=== PATIENT | female | born 2000 | race Caucasian/White ===

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

== ENCOUNTER 2024-05-01 18:47 | Inpatient (IN) ==
--- NOTE | 2024-05-01 19:25 | Emergency Department Note ---
Impression & Plan Mood disorder, Autism spectrum ED Provider Note ED Provider Note NAME: ERICA MOORE AGE:23 SEX: Female : [age] ARRIVES VIA: Private vehicle INFORMANT: Patient ED PROVIDER(s): Judith Coffman DO CHIEF COMPLAINT: Mental health evaluation HPI: This is a 23-year-old female presents emergency department for mental health evaluation. Patient does have documented history of schizoaffective disorder, PTSD, and autism spectrum. She denies any concern for recent injury or illness. She states she has chronic problems with her right elbow and does present wearing a sling. Patient admits to suicidal ideation as well as prior suicide attempt. She denies HI. PAST MEDICAL HISTORY:See Below PAST SURGICAL HISTORY:See Below FAMILY HISTORY:See Below SOCIAL HISTORY:See Below HOME MEDICATIONS:See Below ALLERGIES:See Below VITALS:See Below PHYSICAL EXAMINATION: GENERAL: alert, well appearing, well nourished, no distress, non-toxic EYE EXAM: normal conjunctiva, PERRL and EOM's grossly intact OROPHARYNX: no exudate, no erythema, lips, buccal mucosa, and tongue normal and mucous membranes are moist NECK: supple, no nuchal rigidity, no adenopathy, non-tender LUNGS: Clear to auscultation. Normal chest wall mechanics, no w/r/r HEART: no murmurs, S1 normal and S2 normal ABDOMEN: abdomen soft, non-tender, normo-active bowel sounds, no masses, no rebound or guarding. BACK: Back is symmetrical on inspection and there is no deformity, no midline tenderness, no CVA tenderness. SKIN: no rashes, petechiae, orbruising UPPER EXTREMITIES: upper extremities are grossly normal. FROM, nml pulses b/l. LOWER EXTREMITIES: No pitting edema. FROM, nml pulses b/l. NEURO EXAM: Normal sensorium, cranial nerves II-XII grossly intact, normal speech, no facial droop,nogross weakness of arms, no gross weakness of legs. Gross sensation intact. No ataxia. Vital Signs: reviewed and remarkable Differential Diagnosis: mood disorder, suicidal ideation, anxiety, depression, substance abuse, toxidrome, infection, hypoglycemia, electrolyte abnormalities, ICH as well as others were considered. MEDICAL DECISION MAKING: This is a 73-year-old female presents emerged part for mental health evaluation. Patient with history of autism spectrum disorder, mood disorder, schizoaffective disorder and PTSD. Patient states she has suicidal ideation and has a history of prior attempts. She denies homicidal ideation. She states she has not been taking any of her medications. Patient seen and evaluated by case management referred to [facility] for additional inpatient mental health treatment. 201 signed by me. Consultation(s): 2219: Patient seen and evaluated by case management and referred to [facility] 201 signed by me. ER Treatment Provided: See below Diagnostics Interpreted By Me: -Laboratory studies: As stated above and show below. Triage Nursing Note Reviewed Prior/Outside Records Reviewed Past Med/Surg History Problem List (Updated 05/02/24 @ 02:01 by Judith Coffman DO) Schizoaffective disorder (Acute) PTSD (post-traumatic stress disorder) Nephrolithiasis Abdominal migraine (Acute) Mood disorder (Acute) Autism spectrum (Acute) Right arm weakness Migraine headache Maxillary hypoplasia Medical History Abdominal pain Abnormal uterine bleeding (AUB) Essential hypertriglyceridemia Heat intolerance Screening for heart disease Anxiety Per Patient doesn't have this DX. Information was pulled from her PCP note dated 03/17/2020 Autistic disorder Surgical History History of surgery on arm History of mandibular surgery S/P tonsillectomy and adenoidectomy History of elbow surgery Family History Mother Clotting disorder Other Cancer Colorectal cancer Social History Smoking Status: Never smoker Preferred Language: Tunisian Communication Ability: Effective Visual Impairment: No Limitations Hearing Ability: Normal Record Center Coordinator Required: No Beliefs That Will Affect Care: Nondenominational Nondenominational Beliefs: Voodoo marital status: Single Current Living Situation: Family current occupational status: student Feels Safe at Home: Hesitant to Answer Diet Comment: liquid diet during the past year weight has: decreased > 10 lbs Gender Identity: Nonbinary Allergies Allergies Allergy/AdvReac Type Severity Reaction Status Date / Time chocolate flavor Allergy Severe SHORT OF Verified 12/26/23 23:23 BREATH galcanezumab-gnlm Allergy Intermediate rash Verified 12/26/23 23:23 [From Emgality Pen] ibuprofen [From Advil] Allergy Intermediate hives and Verified 12/26/23 23:23 rash mushroom Allergy Intermediate Hives Verified 12/26/23 23:23 naproxen Allergy Intermediate Hives Verified 12/26/23 23:23 Penicillins Allergy Intermediate RASH Verified 12/26/23 23:23 Sulfa (Sulfonamide Allergy Intermediate hives Verified 12/26/23 23:23 Antibiotics) gabapentin Allergy Unknown Unknown Verified 12/26/23 23:23 rizatriptan Allergy Unknown Unknown Verified 12/26/23 23:23 topiramate AdvReac Severe Suicidal Verified 12/26/23 23:23 Ideations erythromycin base AdvReac Unknown MOM STATES Verified 12/26/23 23:23 THAT IT IS NOT EFFECTIVE Home Meds Home Medications Medication Instructions Recorded Confirmed cholecalciferol (vitamin D3) 125 5,000 unit PO QAM 01/26/23 05/01/24 mcg (5,000 unit) capsule (D3-5000) omega-3 fatty acids 1,000 mg 1,000 mg PO QAM 01/26/23 05/01/24 capsule (Super [place]-3) prazosin 2 mg capsule 6 mg PO HS 09/06/23 05/01/24 levonorgestrel-ethinyl estradiol 1 tab PO QAM 12/26/23 05/01/24 0.1 mg-20 mcg tablet (Sronyx) levothyroxine 25 mcg tablet 25 mcg PO DAILY 02/28/24 05/01/24 Previous Rx's Medication Instructions Recorded eptinezumab-jjmr 100 mg/mL 100 mg IV .COMPLEX 3 months #1 mL 11/14/23 intravenous solution (Vyepti) ondansetron 4 mg disintegrating 4 mg translingual BID PRN nausea 12/24/23 tablet and vomiting due to migraine #60 tabs Results & Data (ED) Vital Signs Vital Signs - 24 hr 05/01/24 18:47 05/01/24 20:45 Temperature 36.6 C Temperature Source Oral Pulse Rate 98 H Pulse Rate [Left Finger] 82 Pulse Rhythm [Left Finger] Regular Pulse Strength [Left Finger] Normal Respiratory Rate 18 20 Respiratory Effort / Characteristics Non-Labored Non-Labored Spontaneous Respiratory Depth Normal Normal Respiratory Pattern Regular Regular Blood Pressure 147/86 H Blood Pressure [Left Arm] 117/67 Blood Pressure Mean 106 Blood Pressure Mean [Left Arm] 83 Blood Pressure Position [Left Arm] Lying Pulse Oximetry 100 97 Oxygen Delivery Method Room Air Room Air Sepsis Recent Fever Within 48 Hours No Sepsis New/Unexplained Change in Mental Status N/A Sepsis Action Taken by Nursing No Action Required Laboratory Data 05/01/24 19:40 05/01/24 19:40 Lab Results 05/01/24 05/01/24 Range/Units 19:40 19:41 WBC 7.79 (4.8-10.8) K/ul RBC 4.70 (4.20-5.40) M/uL Hgb 13.9 (12.0-16.0) g/dl Hct 42.6 (37.0-47.0) % MCV 90.6 (80.0-100.0) fL MCH 29.6 (25.0-34.0) pg MCHC 32.6 (32.0-36.0) g/dL RDW Std Deviation 42.1 (36.4-46.3) fL RDW Coeff of Julio César 12.7 (11.5-14.5) % Plt Count 267 (130-400) K/uL MPV 10.9 (9.4-12.4) fL Immature Gran % (Auto) 0.3 % Neut % (Auto) 62.6 % Lymph % (Auto) 29.0 % [place] % (Auto) 7.2 % Eos % (Auto) 0.6 % Baso % (Auto) 0.3 % Neut # (Auto) 4.88 (1.40-6.50) K/uL Lymph # (Auto) 2.26 (1.20-3.40) K/uL [place] # (Auto) 0.56 (0.11-0.59) K/uL Eos # (Auto) 0.05 (0.00-0.50) K/uL Baso # (Auto) 0.02 (0.00-0.20) K/uL Immature Gran # (Auto) 0.02 (0.01-0.20) K/uL Sodium 139 (136-145) mmol/L Potassium 3.6 (3.5-5.1) mmol/L Chloride 106 (98-107) mmol/L Carbon Dioxide 22 (21-32) mmol/L Anion Gap 11 (3-11) BUN 10 (6-23) mg/dl Creatinine 0.63 (0.6-1.2) mg/dl Est Cr Clr Drug Dosing 182.1 ml/min eGFR 127.75 BUN/Creatinine Ratio 15.9 (10-20) Glucose 89 (70-99(Fasting)) mg/dl Calcium 9.2 (8.6-10.3) mg/dl Total Bilirubin 0.8 (0.2-1.0) mg/dl AST 31 (13-39) U/L ALT 39 (7-52) U/L Alkaline Phosphatase 49 (34-104) U/L Total Protein 7.8 (6.0-8.3) gm/dl Albumin 4.8 (3.4-5.0) gm/dl Globulin 3.0 (2.5-4.0) gm/dl Albumin/Globulin Ratio 1.6 (0.9-2) TSH 1.179 (0.300-4.500) uIu/ml HCG, Qual Negative (Negative) Urine Color Yellow Urine Appearance Clear (Clear) Urine pH 6.5 (4.5-7.5) Ur Specific [place] 1.015 (1.000-1.030) Urine Protein Negative (Negative) Urine Glucose (UA) Negative (Negative) Urine Ketones 2+ H (Negative) Urine Blood Negative (Negative) Urine Nitrite Negative (Negative) Urine Bilirubin Negative (Negative) Urine Urobilinogen Negative (Negative) Ur Leukocyte Esterase Negative (Negative) Salicylates < 3.0 L (3.0-30) mg/dl Urine Opiates Screen Neg (Neg) Ur Methadone, Qual Neg (Neg) Urine Fentanyl Screen Neg (Neg) Acetaminophen < 3 L (10-30) ug/ml Urine Barbiturates Neg (Neg) Ur Phencyclidine (PCP) Neg (Neg) U Amphetamin/Meth Scrn Neg (Neg) MDMA (Ecstasy) Screen Neg (Neg) U Benzodiazepines Scrn Neg (Neg) Ur Cocaine Metabolite Neg (Neg) U Marijuana (THC) Screen Neg (Neg) Ethyl Alcohol mg/dL < 10.0 (<10.0) mg/dl SARS-CoV-2, RNA, NAAT NEGATIVE (NEGATIVE) Discharge Plan Visit Data Chief Complaint: Mental Health Evaluation Stated Complaint: [facility] ED Provider: Judith Coffman Discharge Problem: Mood disorder, Autism spectrum Patient Disposition: Admitted As Inpatient Discharge Instructions Interventions: ED Discharge Assessment Last Done: 05/01/24 22:26
[2024-05-01 20:12] LABS: Basophils # (auto) 0.02 K/uL (0.00-0.20); Basophils % (auto) 0.3 %; Eosinophils # (auto) 0.05 K/uL (0.00-0.50); Eosinophils % (auto) 0.6 %; Hematocrit (blood only) 42.6 % (37.0-47.0); Hemoglobin 13.9 g/dl (12.0-16.0); Immature Granulocytes # (auto) 0.02 K/uL (0.01-0.20); Immature Granulocytes % (auto) 0.3 %; Lymphocytes # (auto) 2.26 K/uL (1.20-3.40); Mean Corpuscular Hemoglobin 29.6 pg (25.0-34.0); Mean Corpuscular Hgb Conc 32.6 g/dL (32.0-36.0); Mean Corpuscular Volume 90.6 fL (80.0-100.0); Mean Platelet Volume 10.9 fL (9.4-12.4); Monocytes # (auto) 0.56 K/uL (0.11-0.59); Monocytes % (auto) 7.2 %; Neutrophils # (auto) 4.88 K/uL (1.40-6.50); Neutrophils % (auto) 62.6 %; Platelet Count 267 K/uL (130-400); RDW Coefficient of Variation 12.7 % (11.5-14.5); RDW Standard Deviation 42.1 fL (36.4-46.3); White Blood Count 7.79 K/ul (4.8-10.8)
[2024-05-01 20:26] LABS: Appearance Urine Clear (Clear); Bilirubin Urine Negative (Negative); Blood Urine Negative (Negative); Color Urine Yellow; Glucose Urine UA Negative (Negative); Ketones Urine 2+ (Negative); Leukocyte Esterase Urine Negative (Negative); Nitrite Urine Negative (Negative); Protein Urine Negative (Negative); Specific Gravity Urine 1.015 (1.000-1.030); Urobilinogen Urine Negative (Negative); pH Urine 6.5 (4.5-7.5)
[2024-05-01 20:29] LABS: Albumin Globulin Ratio 1.6 (0.9-2); Albumin Level 4.8 gm/dl (3.4-5.0); BUN Creatinine Ratio 15.9 (10-20); Bilirubin,Total 0.8 mg/dl (0.2-1.0); Calcium 9.2 mg/dl (8.6-10.3); Creatinine Clr Calc Pharmacy 182.1 ml/min; Potassium 3.6 mmol/L (3.5-5.1); Total Protein 7.8 gm/dl (6.0-8.3)
[2024-05-01 20:31] LABS: Pregnancy Test, Serum Negative (Negative)
[2024-05-01 20:43] LABS: Thyroid Stimulating Hormone 1.179 uIu/ml (0.300-4.500)
[2024-05-01 20:52] LABS: Acetaminophen < 3 ug/ml (10-30); Salicylate < 3.0 mg/dl (3.0-30)
[2024-05-01 21:32] LABS: Amphetamines+Metham, Urine Neg (Neg); Barbiturates, Urine Neg (Neg); Benzodiazepine, Urine Neg (Neg); Cocaine, Urine Neg (Neg); Fentanyl, Urine Neg (Neg); MDMA (Ecstacy), Urine Neg (Neg); Marijuana, Urine Neg (Neg); Methadone, Urine Neg (Neg); Opiate, Urine Neg (Neg); Phencyclidine, Urine Neg (Neg)
[2024-05-01 22:26] VITALS: O2SAT 98
[2024-05-01 23:03] VITALS: RESP 16
[2024-05-01] MEDS ORDERED: hydrOXYzine HCl 25 MG TAB PO PRN ×2 (23:07)
[2024-05-01] MEDS ORDERED: ALUMINUM/MAGNESIUM SUSP 30 ML UDC PO PRN (23:07)
[2024-05-01] MEDS ORDERED: SODIUM CHLORIDE 0.65% NA SOLN 45 ML (OCEAN) PRN (23:07)
[2024-05-01] MEDS ORDERED: MAGNESIUM HYDROXIDE SUSP 30 ML UDC PO PRN (23:07)
[2024-05-01] MEDS ORDERED: MELATONIN 3 MG TAB PO PRN (23:16)
--- NOTE | 2024-05-02 08:58 | History & Physical ---
Date of Service May 02, 2024 Impression / Recommendations Impression ERICA MOORE is a 23-year-old nonbinary individual (they/them) who is currently living at [facility], has frequent emergency room visits for various somatic and psychiatric symptoms, a history of ASD, MDD, PTSD, borderline personality disorder, functional pain syndromes, functional blindness, IBS, abdominal migraines, sacroiliitis, joint hypermobility, and was admitted on 05/01/24 22:14 on a 201 voluntary commitment for SI with plan for seeking a lethal injection. Diagnostically consistent unclear, strong suspicion for factitious disorder as they seem to have many dependent traits and have been observed already to seek attention of others by making sounds related to reported pain in various joints but then once engaged in discussion or getting one-on-one time immediately starts moving same body parts without any signs of distress or impairment. Suspect they may also have a mild intellectual disability as part of their autism spectrum disorder and this further exacerbates suspected borderline personality disorder per history and with marked cluster B traits currently presenting. No current evidence for major depression given that while they report suicidal ideation they present with bright affect, future-orientation and laughing with peers. Suspect they may also be seeking social interaction through their stated mental health concerns. Additionally chart review confirms that they seem to have found a sense of community and friendships by interacting with others on chronic medical condition forums which seems to perpetuate the suspected factitious disorder. Given the level of odd statements and incongruent affect and suddenly moving a local homeless custodial and cutting off contact with outpatient correctional counselor/case manager there is concern for possible psychosis or hypomania playing a role. Hypomania seems unlikely but will observe sleep and behaviors while admitted to better rule this out definitively. Higher suspicion for possible psychosis contributing to odd focus on not eating/drinking, only wanting to certain medication formulations and distancing from their supports. Some of their magical thinking/odd presentation may be due to autism so will trial antipsychotic with plan to discontinue if no benefits are observed. Discussed medication treatment options in detail. Discussed risks, benefits and alternatives. Patient would like to start and consented to clonidine patch as off-label for PTSD, escitalopram liquid formulation for PTSD/unspecified depression, risperidone ODT for psychosis/mood stabilization and topical voltaren cream for physical pain in their joints. Reviewed side effects including but not limited to: low BP/syncope; GI, ALARCON, sexual side effects, and counseled on black box warning of potential for emergence of or increased SI and need to let staff know should this occur or should they feel unsafe. Also discussed importance of seeking emergency care following discharge if this side effect occurs in the future; movement (TD, NMS), cardiac (QTc prolongation), and metabolic (stroke, insulin resistance) and necessity for fasting lipid and glucose labwork and AIMS done with score of 0; potential for hives/allergic reaction given prior report of hives with Ibuprofen (but also reports taking this and tolerating po NSAIDs at other times). MNPR as identifies as non-binary, poor boundaries with peers Overall I spent a total of 75 minutes for this admission including review of chart records, review of labwork, direct evaluation of the patient, counseling the patient, ordering medication, risk assessment, discussion with the psychiatric liason RN and documentation in the electronic health record. 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 The patient will participate in group, recreational, and milieu therapies and will be offered additional individual and family sessions as clinically appropriate. -Medications: * Risperidone 0.5mg ODT qAM and 1mg HS ODT * Escitalopram 5mg daily soln * clonidine 0.1mg TD * Voltaren gel bid prn for joint pain -Labwork: * HbA1c * Fasting lipid panel * Vit D * Vit B12 Inventory Assets Strengths: seeks help, future focused on education Needs: diagnostic clarification, housing, insurance, medications Suicide Risk Level Suicide Risk Level: Moderate (q15 min suicide checks) (reports SI but plan and past attempts are more consistent with self-harm/unrealistic, feels safe in the hospital, affect and presentation is very inconsistent with depression and reports many future oriented goals and plans, feels able to ask for support ) Risk Factors Assessment Male: No : Yes Do You Have Access To A Gun?: No Health Problems: Yes Mental Health Diagnoses: Yes Substance Use Disorders: No Previous Attempt: No (self-harm in past) Family History of Suicide: No Previous Psychiatric Hospitalization: Yes Hopelessness: No Protective Factors Assessment Employed: No Supportive Family: Yes (but not in contact currently) Psychiatric History Identifying Data ERICA MOORE is a 23-year-old nonbinary individual (they/them) who is currently living at [facility], has frequent emergency room visits for various somatic and psychiatric symptoms, a history of ASD, MDD, PTSD, borderline personality disorder, functional pain syndromes, functional blindness, IBS, abdominal migraines, sacroiliitis, joint hypermobility, and was admitted on 05/01/24 22:14 on a 201 voluntary commitment for SI with plan for seeking a lethal injection. Chief Complaint "I have a lot of medical problems and some psychiatric problems, it's a little complicated, I'm ready to pass away now I'm not eating or drinking, ready for morphine". History of Present Illness Oswaldo presents with a complex mental state, expressing a desire to and to stop eating and drinking, while also discussing future educational and career aspirations. They describe wish to by suicide by getting morphine or lethal injection stating "I want to be on drugs to go to sleep and be at peace and then ". However then begins telling me about how they are moving to [facility] soon to start college at [employer] noting "I'm actually leaving eventually and I'm going to [place]. 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 Pointed out this discrepancy to which they reply being fed up with chronic pain. They report chronic physical pain since age 13, including abdominal migraines (though are on a new infusion medication they report is helping a lot), irritable bowel syndrome with diarrhea, encephalitis, joint issues, and tendonitis. They deny having tried any pain medications except Tylenol and Ibupfen in the past but are very resistant to any po medications for pain (or psychiatric symptoms) nor consideration for further outpatient options such as PT or chronic pain clinic noting "I don't trust that". Pointed out this seemed like help seeking help rejecting behavior to which they reply "help rejecting, yes I do that". They report a history of autism, depression, major compulsive disorder, anxiety, and PTSD, with a strained relationship with their mother being a contributing factor to their PTSD symptoms. They endorse depressive symptoms such as suicidal ideation, poor sleep, and constant fatigue, with a history of three suicide attempts, the most recent involving self-harm with a tuna can and prior to that described as "I pick my nails because I'm doing suicide, but that's all the time for me, I'm used to it."They deny current anxiety symptoms. They exhibits periods of elevated and varying voice intonation which they attribute to their autism. They are currently prescribed prazosin for PTSD, Prozac for depression, trazodone for sleep, and Synthroid for hypothyroidism but haven't been taking these because reportedly some medications were stolen at the custodial and as they report a willingness only for "IM or IV". They do express willingness to consider liquid, dissolvable, cream and patch formulations. Additionally, the patient reports homelessness since April 21 and is currently staying at [facility] an arrangement they are satisfied with. They are involved with outpatient providers at [facility] and a therapist, but sessions are currently on hold due to insurance complications. However they state "it's not a problem, I'm not worried about it". They also report being on the waitlist at an [place] custodial which is being coordinated by [facility] and reports not currently speaking with their outpatient correctional counselor/case manager. Difficult to fully assess psychiatric ROS-hx of schizoaffective disorder or schizophrenia per chart review but they state this diagnosis was revised at [facility]. Denies history of walter, reports poor sleep recently but with constant fatigue. Past Psychiatric History Current Psychiatric Diagnosis: Depression; anxiety, PTSD Outpatient Services: [facility] Therap[facility]-Carla Armstrong (had been weekly, "not now because of my insurance") [facility] ("but I'm not seeing them anymore because I'm moving to [place]") Previous Psych Admissions: many, Last hospitalization two months ago at [facility] for ASD, MDD, anxiety, PTSD Do You Have Access To A Gun?: No History of Previous Suicide Attempt: Yes Describe Attempts in the Past: 3x-tried to cut self with a tuna can >1 year, Past Medication Trials: trazodone, prazosin, fluoxetine Additional Notes: "I pick my nails due to suicide" Allergies Allergy/AdvReac Type Severity Reaction Status Date / Time chocolate flavor Allergy Severe SHORT OF Verified 12/26/23 23:23 BREATH [id number] Allergy Intermediate rash Verified 12/26/23 23:23 [From Emgality Pen] ibuprofen [From Advil] Allergy Intermediate hives and Verified 12/26/23 23:23 rash mushroom Allergy Intermediate Hives Verified 12/26/23 23:23 naproxen Allergy Intermediate Hives Verified 12/26/23 23:23 Penicillins Allergy Intermediate RASH Verified 12/26/23 23:23 Sulfa (Sulfonamide Allergy Intermediate hives Verified 12/26/23 23:23 Antibiotics) gabapentin Allergy Unknown Unknown Verified 12/26/23 23:23 rizatriptan Allergy Unknown Unknown Verified 12/26/23 23:23 topiramate AdvReac Severe Suicidal Verified 12/26/23 23:23 Ideations erythromycin base AdvReac Unknown MOM STATES Verified 12/26/23 23:23 THAT IT IS NOT EFFECTIVE Home Medications Medication Instructions Recorded Confirmed Type cholecalciferol (vitamin D3) 125 5,000 unit PO QAM 01/26/23 05/01/24 History mcg (5,000 unit) capsule (D3-5000) omega-3 fatty acids 1,000 mg 1,000 mg PO QAM 01/26/23 05/01/24 History capsule (Super [place]-3) prazosin 2 mg capsule 6 mg PO HS 09/06/23 05/01/24 History eptinezumab-jjmr 100 mg/mL 100 mg IV .COMPLEX 3 months #1 mL 11/14/23 05/01/24 Rx intravenous solution (Vyepti) ondansetron 4 mg disintegrating 4 mg translingual BID PRN nausea 12/24/23 05/01/24 Rx tablet and vomiting due to migraine #60 tabs levonorgestrel-ethinyl estradiol 1 tab PO QAM 12/26/23 05/01/24 History 0.1 mg-20 mcg tablet (Sronyx) levothyroxine 25 mcg tablet 25 mcg PO DAILY 02/28/24 05/01/24 History trazodone 100 mg tablet 100 mg PO HS 05/02/24 05/02/24 History Family History Family History of: Anxiety and Bipolar Family Mental Health History Comment: Dad-bipolar Mom-anxiety Alcohol History Hx of Alcohol Use Over the Past 12 Months: No AUDIT Total Score: 0 Smoking Use Smoking Status: Never smoker Substance History Hx of Prescription Med Misuse Over the Past 12 Months: No Hx of Over the Counter Med Misuse Over the Past 12 Months: No Hx of Inhalent Misuse Over the Past 12 Months: No Hx of Organic Substance Use Over the Past 12 Months: No Hx of Illegal Substances/Street Drug Use Over Past 12 Months: No Problems as a Result of Past Substance Use: None Identified Personal History Living Arrangements: [facility] Highest Grade Completed: High School Graduate Employment Status: Unemployed Beliefs That Will Affect Care: Restorationist Hx Traumatic Life Events: Yes Patient History Medical History Abdominal pain Abnormal uterine bleeding (AUB) Essential hypertriglyceridemia Heat intolerance Screening for heart disease Anxiety Per Patient doesn't have this DX. Information was pulled from her PCP note dated 03/17/2020 Autistic disorder Surgical History History of surgery on arm History of mandibular surgery S/P tonsillectomy and adenoidectomy History of elbow surgery Family History Mother Clotting disorder Other Cancer Colorectal cancer Social History Smoking Status: Never smoker Preferred Language: Khmer Communication Ability: Effective Visual Impairment: No Limitations Hearing Ability: Normal Medical Records Director Required: No Beliefs That Will Affect Care: Restorationist Restorationist Beliefs: Gnosticism marital status: Single Current Living Situation: Family current occupational status: student Feels Safe at Home: Hesitant to Answer Diet Comment: liquid diet during the past year weight has: decreased > 10 lbs Gender Identity: Nonbinary Review of Systems Review of Systems: All systems reviewed & are unremarkable except as noted in HPI & below Physical Exam Psychiatric: Orientation: alert and oriented x 3 Apperance: appropriately dressed (holding stuffed animal and ice pack to their stomach) Eye Contact: + fair eye contact Motor Behavior: no abnormal motor movements Speech: + abnormal rate/rhythm/volume of speech (high pitched tone, child-like) Affect: euthymic affect (smiling broadly with peers, chatting in the hallway); + mood not congruent with affect Mood: + depressed mood; no anxious mood Thought Process: + circumstantial thought process Thought Content: + preoccupation and + delusions Suicidal Thoughts: denies suicidal intent; + reports suicidal thoughts (but also very future-oriented) and + reports suicidal plan (seeking lethal injection) Homicidal Thoughts: denies homicidal thoughts Hallucinations: no auditory hallucinations and no visual hallucinations Cognition: recent memory grossly intact, remote memory grossly intact, attention grossly intact and language grossly intact Estimated Intelligence: + below average estimated intelligence Insight: + poor insight Judgment: + poor judgement Vital Signs (Past 24 Hours): Last Vital Signs Temp 36.7 C 05/02/24 06:38 Pulse 76 05/02/24 06:39 Resp 16 05/02/24 06:38 BP 114/81 05/02/24 06:39 Pulse Ox 98 05/01/24 22:44 O2 Del Method Room Air 05/01/24 22:44 Exam Statement: A physical exam was performed in the ED by Dr. Coffman for the purposes of medical clearance. I accept that physical as correct and adequate for the purposes of the inpatient physical exam. Results & Data ([facility]) Laboratory Results Laboratory Results - last 24 hr 05/01/24 05/01/24 19:40 19:41 WBC 7.79 RBC 4.70 Hgb 13.9 Hct 42.6 MCV 90.6 MCH 29.6 MCHC 32.6 RDW Std Deviation 42.1 RDW Coeff of Julio César 12.7 Plt Count 267 MPV 10.9 Immature Gran % (Auto) 0.3 Neut % (Auto) 62.6 Lymph % (Auto) 29.0 Schley % (Auto) 7.2 Eos % (Auto) 0.6 Baso % (Auto) 0.3 Neut # (Auto) 4.88 Lymph # (Auto) 2.26 Schley # (Auto) 0.56 Eos # (Auto) 0.05 Baso # (Auto) 0.02 Immature Gran # (Auto) 0.02 Sodium 139 Potassium 3.6 Chloride 106 Carbon Dioxide 22 Anion Gap 11 BUN 10 Creatinine 0.63 Est Cr Clr Drug Dosing 182.1 eGFR 127.75 BUN/Creatinine Ratio 15.9 Glucose 89 Calcium 9.2 Total Bilirubin 0.8 AST 31 ALT 39 Alkaline Phosphatase 49 Total Protein 7.8 Albumin 4.8 Globulin 3.0 Albumin/Globulin Ratio 1.6 TSH 1.179 HCG, Qual Negative Urine Color Yellow Urine Appearance Clear Urine pH 6.5 Ur Specific Roe 1.015 Urine Protein Negative Urine Glucose (UA) Negative Urine Ketones 2+ H Urine Blood Negative Urine Nitrite Negative Urine Bilirubin Negative Urine Urobilinogen Negative Ur Leukocyte Esterase Negative Salicylates < 3.0 L Urine Opiates Screen Neg Ur Methadone, Qual Neg Urine Fentanyl Screen Neg Acetaminophen < 3 L Urine Barbiturates Neg Ur Phencyclidine (PCP) Neg U Amphetamin/Meth Scrn Neg MDMA (Ecstasy) Screen Neg U Benzodiazepines Scrn Neg Ur Cocaine Metabolite Neg U Marijuana (THC) Screen Neg Ethyl Alcohol mg/dL < 10.0 SARS-CoV-2, RNA, NAAT NEGATIVE Current Inpatient Medications Current Inpatient Medications: Current Inpatient Medications Acetaminophen (Acetaminophen 325 Mg Tab) 650 mg PO Q4H PRN PRN Reason: Headache or Minor Fever Stop: 05/31/24 23:06 Al Hydrox/Mg Hydrox/Simethicone (Aluminum/Magnesium Susp 30 Ml Udc) 30 ml PO Q4H PRN PRN Reason: GI Upset Stop: 05/31/24 23:06 Hydroxyzine HCl (Hydroxyzine Hcl 25 Mg Tab) 50 mg PO HSZ PRN PRN Reason: Insomnia Stop: 05/31/24 23:06 Hydroxyzine HCl (Hydroxyzine Hcl 25 Mg Tab) 25 mg PO Q4H PRN PRN Reason: Anxiety Stop: 05/31/24 23:06 Magnesium Hydroxide (Magnesium Hydroxide Susp 30 Ml Udc) 30 ml PO DAILY PRN PRN Reason: Constipation Stop: 05/31/24 23:06 Melatonin (Melatonin 3 Mg Tab) 3 mg PO HS PRN PRN Reason: Sleep Stop: 05/31/24 23:15 Sodium Chloride (Sodium Chloride 0.65% Na Soln 45 Ml ([place])) 1 - 2 sprays NA PRN PRN PRN Reason: Nasal Dryness/Congestion Stop: 05/31/24 23:06
[2024-05-02] MEDS ORDERED: DICLOFENAC SOD 1% GEL 100 GM TUBE EXT PRN (10:53)
[2024-05-02] MEDS: cloNIDine HCL 0.1 MG/24 HR TRANSDERM SYS TD SCH (11:44)
[2024-05-02] MEDS: ESCITALOPRAM OXALATE ORAL SOLN 5 MG/5 ML PO SCH (11:46)
[2024-05-02] MEDS: risperiDONE ODT 0.5 MG SOLTAB PO SCH ×2 (11:53→22:19)
[2024-05-02] MEDS: ONDANSETRON 4 MG OD TAB PO PRN (11:55)
[2024-05-02] MEDS: CHECK CLONIDINE PATCH PLACEMENT SCH (17:13)
[2024-05-03 08:44] LABS: Estimated Average Glucose 91 mg/dl; Hemoglobin A1C 4.8 % (4.5-5.6)
[2024-05-03 08:54] LABS: Chol HDL Ratio 3.8 (0-5)
[2024-05-03] MEDS: ESCITALOPRAM OXALATE ORAL SOLN 5 MG/5 ML PO SCH (09:08)
[2024-05-03] MEDS ORDERED: PSYLLIUM or GUAR GUM FIBER 4GM PACKET PO PRN (12:10)
--- OUTSIDE RECORDS SUMMARY | 2024-05-03 12:59 | External Medical Summary | Continuity of Care Document ---
Author Name Unknown Organization [facility] [id number] [place] [id number] Care Team Providers Care Scrap Drop Operator Name Role Phone SheridanNicol Primary Care Physician [phone] Encounter [facility] [id number] Date(s): 04/25/24 - 04/25/24 [facility] [address] [facility] [address] [address] [phone] Encounter Diagnosis Body mass index [BMI] 37.0-37.9, adult(Discharge Diagnosis) - 04/25/24 Abdominal migraine(Discharge Diagnosis) - 04/27/24 Autism(Discharge Diagnosis) - 04/27/24 IBS (irritable bowel syndrome)(Discharge Diagnosis) - 04/27/24 Discharge Disposition: Home or Self Care Attending Physician: DO Zimmerman Gretchen Elizabeth Referring Physician: DO Begum Allison B Allergies, Adverse Reactions, Alerts Substance Criticality Severity Reaction Reaction Severity Status erythromycin Unknown reaction Active gabapentin Unable to assess criticality Severe Suicidal ideation Active Advil burning rash Active Emgality diarrhea and itching Active rizatriptan SOB Active penicillins 1 does not work Ac tive sulfa drugs Hives arms Active Topamax suicidal ideation Ac tive Aleve Unable to assess criticality Moderate Hives Active chocolate SOB Active mushrooms Rash, Hives Active 1Penicillin causes HIVES Immunizations Given and Recorded Vaccine Date Status Refusal Reason tetanus/diphtheria/pertuss, acel (Tdap) 05/05/23 R ecorded tetanus/diphtheria/pertuss, acel (Tdap) 1 12/09/21 Given tetanus/diphtheria/pertuss, acel (Tdap) 08/23/11 R ecorded SARS-CoV-2 mRNA-1273 (6y+ bivalent) 2 04/19/22 Rec orded influenza virus vaccine, inactivated 02/06/22 Give n influenza virus vaccine, inactivated 01/30/20 Casey rded influenza virus vaccine, inactivated 07/25/19 Casey rded influenza virus vaccine, inactivated 05/24/18 Give n influenza virus vaccine, inactivated 03/24/17 Give n influenza virus vaccine, inactivated 02/21/16 Give n SARS-CoV-2 (COVID-19) mRNA BNT-162b2 vax 04/13/21 Recorded SARS-CoV-2 (COVID-19) mRNA-1273 vaccine 3 09/11/20 Recorded SARS-CoV-2 (COVID-19) mRNA-1273 vaccine 4 08/14/20 Recorded hepatitis A pediatric vaccine 01/24/17 Given hepatitis A pediatric vaccine 08/23/11 Recorded meningococcal conjugate vaccine 01/24/17 Given meningococcal conjugate vaccine 08/23/11 Recorded human papillomavirus vaccine 11/19/15 Recorded human papillomavirus vaccine 07/20/15 Recorded human papillomavirus vaccine 5 05/22/15 Recorded diphtheria/tetanus/pertuss, acel (DTaP) 05/24/06 R ecorded diphtheria/tetanus/pertuss, acel (DTaP) 11/27/01 R ecorded diphtheria/tetanus/pertuss, acel (DTaP) 00 R ecorded diphtheria/tetanus/pertuss, acel (DTaP) 00 R ecorded diphtheria/tetanus/pertuss, acel (DTaP) 00 R ecorded poliovirus vaccine, inactivated 05/24/06 Recorded poliovirus vaccine, inactivated 11/27/01 Recorded poliovirus vaccine, inactivated 00 Recorded poliovirus vaccine, inactivated 00 Recorded varicella virus vaccine 05/24/06 Recorded varicella virus vaccine 05/29/01 Recorded measles/mumps/rubella virus vaccine 05/24/06 Recor ded measles/mumps/rubella virus vaccine 05/29/01 Recor ded pneumococcal 7-valent vaccine 10/25/01 Recorded pneumococcal 7-valent vaccine 00 Recorded pneumococcal 7-valent vaccine 00 Recorded pneumococcal 7-valent vaccine 00 Recorded haemophilus b conj (PRP-OMP) vaccine 10/25/01 Casey rded haemophilus b conj (PRP-OMP) vaccine 00 Casey rded haemophilus b conj (PRP-OMP) vaccine 00 Casey rded haemophilus b conj (PRP-OMP) vaccine 00 Casey rded hepatitis B pediatric vaccine 02/18/01 Recorded hepatitis B pediatric vaccine 00 Recorded hepatitis B pediatric vaccine 00 Recorded 1Result Comment: Bev Chinchilla LPN 2Result Comment: 2022-12-27: Historical information-source unspecified 3Result Comment: 2021-01-07: Historical information-source unspecified 4Result Comment: 2021-01-07: Historical information-source unspecified 5Result Comment: 2017-01-24: Historical information-source unspecified Medications Falmina 100 mcg-20 mcg oral tablet Start: 12/24/23 8:11:00 AM EDT, See Instructions, Disp# 84 tab, Refills: 1, TAKE 1 TABLET BY MOUTH EVERY DAY, Pharmacy: [facility]/pharmacy #[id number] Start Date: 12/24/23 Status: Ordered Fish Oil 1000 mg oral capsule Start: 03/14/24 3:04:00 PM EDT, 1 cap, PO, Daily, Disp# 30 cap, Refills: 11, Pharmacy: [facility]/pharmacy#[id number] Start Date: 03/14/24 Stop Date: 03/09/25 Status: Ordered FLUoxetine 20 mg oral capsule Start: 03/14/24 2:38:00 PM EDT Start Date: 03/14/24 Status: Ordered ondansetron 4 mg oral tablet, disintegrating Start: 01/08/23 9:23:00 AM EDT, 60 each, DISSOLVE 1 TABLET ON THE TONGUE TWICE DAILY Start Date: 01/08/23 Status: Ordered prazosin 2 mg oral capsule Start: 02/22/24 4:45:00 PM EDT, 90 each, 0 Refill(s), TAKE 3 CAPS BY MOUTH AT BEDTIME FOR PTSD Start Date: 02/22/24 Status: Ordered Synthroid 25 mcg (0.025 mg) oral tablet Start: 04/23/24 7:22:00 AM EST, 25.0 ug, PO, Daily, Disp# 90 tab, Refills: 3, Pharmacy: [facility]/pharmacy#[id number] Start Date: 04/23/24 Stop Date: 04/18/25 Status: Ordered traZODone 100 mg oral tablet Start: 03/14/24 2:38:00 PM EDT Start Date: 03/14/24 Status: Ordered Vitamin D3 125 mcg (5000 intl units) oral tablet Start: 04/09/24 7:48:00 AM EST, 1 tab, PO, Daily, Disp# 30 tab, Refills: 11, Pharmacy: [facility]/pharmacy#[id number] Start Date: 04/09/24 Stop Date: 04/04/25 Status: Ordered Vyepti 100 mg/mL intravenous solution Start: 11/08/23 8:12:00 AM EDT Start Date: 11/08/23 Status: Ordered Mental Status 04/25/24 Barriers to Learning one year Cognitive deficit Mandatory Health Literacy Documentation Yes Health Literacy Communication Barriers N ever Primary Language Yi Problem List Condition Confirmation Course Effective Dates Status H ealth Status Informant Abdominal migraine Confirmed Active ALT (SGPT) level raised Confirmed Active Ankle instability Confirmed Active Ankle pain Confirmed Active Anxiety Confirmed Active Autism Confirmed Active Borderline personality disorder Confirmed Active Hypertension Confirmed Active Sacroiliitis Confirmed Active IBS (irritable bowel syndrome) Confirmed Active Low back pain Confirmed Active Migraine with aura Confirmed Active Left [place] fracture Confirmed Active PTSD (post-traumatic stress disorder) Confirmed Active Schizoaffective disorder Confirmed Active Fatty liver Confirmed Active TMJ (temporomandibular joint syndrome) Confirmed Active Diagnosis Diagnosis Type Effective Dates Health Status inical Service Informant Body mass index [BMI] 37.0-37.9, adult Discharge Diagnosis 04/25/24 Non-Specified Abdominal migraine Discharge Diagnosis 04/27/24 Non-Specified Autism Discharge Diagnosis 04/27/24 Non-Specified IBS (irritable bowel syndrome) Discharge Diagnosis 04/27/24 Non-Specified Procedures Procedure Date Related Diagnosis Body Site Status X-ray of right foot 1 12/01/20 Com pleted Arm 2 Completed Tonsils and adenoids Comp leted 1No acute fracture or dislocation in right foot. 2ulna surger Vital Signs Most recent to oldest [Reference Range]: 1 Height 172 cm (04/25/24 3:48 PM) Patient Weight 111.9 kg (04/25/24 3:48 PM) Body Mass Index 37.82 kg/m2 (04/25/24 3:48 PM) Heart Rate 85 bpm (04/25/24 3:48 PM) Blood Pressure 108/68mmHg (04/25/24 3:48 PM) Cuff Pulse Pressure 40 mmHg (04/25/24 3:48 PM) Social History Social History Type Response Smoking Status Never smoked cigaret marjorie Sex Female Sex Representation Female (finding) Patient Care team information Care Team Personnel Name: MD Tong Jonathan D Position: Physician - Family Med Member Role: Lifetime Relationship Address: [address] [place] [address] [place] Name: KASSY Darling Katy Marie Position: Nurse Pract - Family Med Member Role: Lifetime Relationship Address: [address] [place] [address] [place] Name: MD Arvin, Nicol Cavanaugh Position: Physician Member Role: Primary Care Provider Address: [address] [place] [address] [place] Name: DO Logan Sameer Position: Resident Member Role: Lifetime Relationship Address: [address] [place] [address] Care Team Related Persons Name: EDWARDO FONSECA Name: EDWARDO FONSECA
--- NOTE | 2024-05-03 14:40 | Psychiatric Progress Note ---
Date of Service May 03, 2024 Impression / Recommendations Impression ERICA MOORE is a 23-year-old nonbinary individual (they/them) who is currently living at [facility], has frequent emergency room visits for various somatic and psychiatric symptoms, a history of ASD, MDD, PTSD, borderline personality disorder, functional pain syndromes, functional blindness, IBS, abdominal migraines, sacroiliitis, joint hypermobility, and was admitted on 05/01/24 22:14 on a 201 voluntary commitment for SI with plan for seeking a lethal injection. Diagnostically consistent unclear, strong suspicion for factitious disorder as they seem to have many dependent traits and have been observed already to seek attention of others by making sounds related to reported pain in various joints but then once engaged in discussion or getting one-on-one time immediately starts moving same body parts without any signs of distress or impairment. Suspect they may also have a mild intellectual disability as part of their autism spectrum disorder and this further exacerbates suspected borderline personality disorder per history and with marked cluster B traits currently presenting. No current evidence for major depression given that while they report suicidal ideation they present with bright affect, future-orientation and laughing with peers. Suspect they may also be seeking social interaction through their stated mental health concerns. Additionally chart review confirms that andres flanagan seem to have found a sense of community and friendships by interacting with others on chronic medical condition forums which seems to perpetuate the suspected factitious disorder. Higher suspicion for possible psychosis contributing to odd focus on not eating/drinking, only wanting to certain medication formulations and distancing from their supports. Some of their magical thinking/odd presentation may be due to autism so will trial antipsychotic with plan to discontinue if no benefits are observed. A: Patient continues to endorse vague and unclear suicidal ideation with no specific plans. Concern for personality pathology with emotional distress and attention-seeking behavior. Would benefit from escitalopram and will increase to appropriate dose. Metamucil as needed started for more formed stools in IBS. MNPR as identifies as non-binary, poor boundaries with peers Overall, I spent a total of 45 minutes with this case including review of chart records, nursing report, review of lab work, direct evaluation of the patient at bedside, counseling the patient, multidisciplinary team meeting, orders, and documentation in the electronic health record. 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 Metamucil as needed started daily. 05/02/2024: The patient was admitted to the [facility] ([facility]) on q15 min checks (behavioral with suicide precautions) for safety. The patient will participate in group, recreational, and milieu therapies and will be offered additional individual and family sessions as clinically appropriate. -Medications: * Risperidone 0.5mg ODT qAM and 1mg HS ODT * Escitalopram 5mg daily soln * clonidine 0.1mg TD * Voltaren gel bid prn for joint pain -Labwork: * HbA1c * Fasting lipid panel * Vit D * Vit B12 Inventory Assets Strengths: seeks help, future focused on education Needs: diagnostic clarification, housing, insurance, medications Suicide Risk Level Suicide Risk Level: Moderate (q15 min suicide checks) (reports SI but plan and past attempts are more consistent with self-harm/unrealistic, feels safe in the hospital, affect and presentation is very inconsistent with depression and reports many future oriented goals and plans, feels able to ask for support ) Risk Factors Assessment Male: No : Yes Do You Have Access To A Gun?: No Health Problems: Yes Mental Health Diagnoses: Yes Substance Use Disorders: No Previous Attempt: No (self-harm in past) Family History of Suicide: No Previous Psychiatric Hospitalization: Yes Hopelessness: No Protective Factors Assessment Employed: No Supportive Family: Yes (but not in contact currently) Interval History Chief Complaint "Suicidal unable to eat" Review of Systems Sleep Information Total Hours of Sleep: 6 Meal Information Percent Meal Consumed - Breakfast: 0 Percent Meal Consumed - Lunch: 0 Percent Meal Consumed - Dinner: 0 Subjective Subjective Patient was seen & assessed and interval progress reviewed with treatment team nursing and social work Patient reports initially coming in because she had "a plan to starve, put on morphine, and stuff like that". When asked what she would like to see improved in her life she reports that is a good question and hesitates to answer. Initially details all the different diagnoses she has had in the past and was redirected to the question. Wants her emotions to be better managed and that they can be erratic at times. Reports not wanting to return to her mother's home and that her mother asked her to leave. When given the hypothetical that she could return back to her mother's she says that she does not want to due to verbal disputes. Has future plans to go to a emergency skilled nursing in [place] and wants to eventually come back to the [facility]. She is working on getting Medicaid. Complains of physical pain "migraines in my stomach". And is unable to tell me specific details. Requesting medications for dizziness. When asked about why she cannot take oral pills she says she is not able to swallow and that it is part of her want to kill herself. Complaining of diarrhea. Physical Exam Psychiatric Orientation: alert and oriented x 3 Apperance: appropriately dressed (holding stuffed animal and ice pack to their stomach) Eye Contact: + fair eye contact Motor Behavior: no abnormal motor movements Speech: + abnormal rate/rhythm/volume of speech (high pitched tone, child-like) Affect: euthymic affect (smiling broadly with peers, chatting in the hallway); + mood not congruent with affect Mood: + depressed mood; no anxious mood Thought Process: + circumstantial thought process Thought Content: + preoccupation and + delusions Suicidal Thoughts: denies suicidal intent; + reports suicidal thoughts (but also very future-oriented) and + reports suicidal plan (seeking lethal injection) Homicidal Thoughts: denies homicidal thoughts Hallucinations: no auditory hallucinations and no visual hallucinations Cognition: recent memory grossly intact, remote memory grossly intact, attention grossly intact and language grossly intact Estimated Intelligence: + below average estimated intelligence Insight: + poor insight Judgment: + poor judgement Vital Signs (Past 24 Hours) Last Vital Signs Temp 36.7 C 05/03/24 06:37 Pulse 73 05/03/24 06:38 Resp 16 05/03/24 06:37 BP 127/84 05/03/24 06:38 Pulse Ox 98 05/01/24 22:44 O2 Del Method Room Air 05/01/24 22:44 Results & Data ([facility]) Laboratory Results Laboratory Results - last 24 hr 05/03/24 08:11 Estimat Average Glucose 91 Hemoglobin A1c 4.8 Triglycerides 158 H Cholesterol 172 LDL Cholesterol, Calc 95 VLDL Cholesterol, Calc 32 H HDL Cholesterol 45 Cholesterol/HDL Ratio 3.8 Vitamin B12 383 25-OH Vitamin D Total 34.0 Current Inpatient Medications Current Inpatient Medications: Current Inpatient Medications Acetaminophen (Acetaminophen 325 Mg Tab) 650 mg PO Q4H PRN PRN Reason: Headache or Minor Fever Stop: 05/31/24 23:06 Al Hydrox/Mg Hydrox/Simethicone (Aluminum/Magnesium Susp 30 Ml Udc) 30 ml PO Q4H PRN PRN Reason: GI Upset Stop: 05/31/24 23:06 Clonidine HCl (Clonidine Hcl 0.1 Mg/24 Hr Transderm Sys) 1 patch TD Q7D [facility] Stop: 06/01/24 10:59 Last Admin: 05/02/24 11:44 Dose: 1 patch Diclofenac Sodium (Diclofenac Sod 1% Gel 100 Gm Tube) 2 gm EXT BID PRN; Protocol PRN Reason: joint pain Stop: 06/01/24 10:59 Escitalopram Oxalate (Escitalopram Oxalate Oral Soln 5 Mg/5 Ml) 10 mg PO QAM [facility]ERSON Stop: 06/03/24 08:59 Hydroxyzine HCl (Hydroxyzine Hcl 25 Mg Tab) 50 mg PO HSZ PRN PRN Reason: Insomnia Stop: 05/31/24 23:06 Hydroxyzine HCl (Hydroxyzine Hcl 25 Mg Tab) 25 mg PO Q4H PRN PRN Reason: Anxiety Stop: 05/31/24 23:06 Magnesium Hydroxide (Magnesium Hydroxide Susp 30 Ml Udc) 30 ml PO DAILY PRN PRN Reason: Constipation Stop: 05/31/24 23:06 Melatonin (Melatonin 3 Mg Tab) 3 mg PO HS PRN PRN Reason: Sleep Stop: 05/31/24 23:15 Miscellaneous (Remove Clonidine Patch) 1 each N/A CQWK [facility] Stop: 06/01/24 10:59 Last Admin: 05/02/24 11:47 Dose: Not Given Miscellaneous (Check Clonidine Patch Placement) 1 each N/A QS [facility] Stop: 06/01/24 15:59 Last Admin: 05/03/24 08:36 Dose: 1 each Ondansetron HCl (Ondansetron 4 Mg Od Tab) 4 mg PO BID PRN PRN Reason: nausea and vomiting due to migraine Stop: 06/01/24 10:43 Last Admin: 05/03/24 13:34 Dose: 4 mg Psyllium Hydrophilic Mucilloid (Psyllium Or Guar Gum Fiber 4gm Packet) 4 gm PO DAILY PRN PRN Reason: constipation, diarrhea Stop: 06/02/24 12:09 Risperidone (Risperidone Odt 0.5 Mg Soltab) 0.5 mg PO QAM [facility] Stop: 06/01/24 10:59 Last Admin: 05/03/24 08:28 Dose: 0.5 mg Risperidone (Risperidone Odt 0.5 Mg Soltab) 1 mg PO HS [facility] Stop: 06/01/24 21:59 Last Admin: 05/02/24 22:19 Dose: 1 mg Sodium Chloride (Sodium Chloride 0.65% Na Soln 45 Ml ([place])) 1 - 2 sprays NA PRN PRN PRN Reason: Nasal Dryness/Congestion Stop: 05/31/24 23:06 Mental Health & Subst Abuse Tx Therapist Name of Therapist: Carla Suarez Service Engine Repairer Name of Service Engine Repairer: Juan chavis [facility] (2) Schizoaffective disorder Schizoaffective disorder type: unspecified Qualified Code(s): F25.9 - Schizoa ffective disorder, unspecified
[2024-05-03] MEDS: ACETAMINOPHEN 325 MG TAB PO PRN (15:42)
[2024-05-04] MEDS: ESCITALOPRAM OXALATE ORAL SOLN 5 MG/5 ML PO SCH (07:40)
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
[2024-05-05 06:42] VITALS: TEMP 97.7
[2024-05-05] MEDS: ESCITALOPRAM OXALATE ORAL SOLN 10 MG/10 ML UDP PO SCH (08:55)
--- NOTE | 2024-05-05 13:50 | Psychiatric Progress Note ---
Date of Service May 05, 2024 Impression / Recommendations Impression ERICA MOORE is a 23-year-old nonbinary individual (they/them) who is currently living at [facility], has frequent emergency room visits for various somatic and psychiatric symptoms, a history of ASD, MDD, PTSD, borderline personality disorder, functional pain syndromes, functional blindness, IBS, abdominal migraines, sacroiliitis, joint hypermobility, and was admitted on 05/01/24 22:14 on a 201 voluntary commitment for SI with plan for seeking a lethal injection. Diagnostically consistent unclear, strong suspicion for factitious disorder as they seem to have many dependent traits and have been observed already to seek attention of others by making sounds related to reported pain in various joints but then once engaged in discussion or getting one-on-one time immediately starts moving same body parts without any signs of distress or impairment. Suspect they may also have a mild intellectual disability as part of their autism spectrum disorder and this further exacerbates suspected borderline personality disorder per history and with marked cluster B traits currently presenting. No current evidence for major depression given that while they report suicidal ideation they present with bright affect, future-orientation and laughing with peers. Suspect they may also be seeking social interaction through their stated mental health concerns. Additionally chart review confirms that andres flanagan seem to have found a sense of community and friendships by interacting with others on chronic medical condition forums which seems to perpetuate the suspected factitious disorder. Higher suspicion for possible psychosis contributing to odd focus on not eating/drinking, only wanting to certain medication formulations and distancing from their supports. Some of their magical thinking/odd presentation may be due to autism so will trial antipsychotic with plan to discontinue if no benefits are observed. A: Patient continues to ruminate about pain sensations. Concern for attention- seeking behaviors. Demonstrating poor planning regarding disposition. She denies SI and presents intention to live. Continues to have emotional lability and difficulty coping. MNPR as identifies as non-binary, poor boundaries with peers Overall, I spent a total of 30 minutes with this case including review of chart records, nursing report, review of lab work, direct evaluation of the patient at bedside, counseling the patient, multidisciplinary team meeting, orders, and documentation in the electronic health record. 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 05/04/2024: Continue medications and treatment plan. 05/03/2024: Increase Lexapro to 10 mg daily. Metamucil as needed started daily. 05/02/2024: The patient was admitted to the [facility] ([facility]) on q15 min checks (behavioral with suicide precautions) for safety. The patient will participate in group, recreational, and milieu therapies and will be offered additional individual and family sessions as clinically appropriate. -Medications: * Risperidone 0.5mg ODT qAM and 1mg HS ODT * Escitalopram 5mg daily soln * clonidine 0.1mg TD * Voltaren gel bid prn for joint pain -Labwork: * HbA1c * Fasting lipid panel * Vit D * Vit B12 Inventory Assets Strengths: seeks help, future focused on education Needs: diagnostic clarification, housing, insurance, medications Suicide Risk Level Suicide Risk Level: Moderate (q15 min suicide checks) (reports SI but plan and past attempts are more consistent with self-harm/unrealistic, feels safe in the hospital, affect and presentation is very inconsistent with depression and reports many future oriented goals and plans, feels able to ask for support ) Risk Factors Assessment Male: No : Yes Do You Have Access To A Gun?: No Health Problems: Yes Mental Health Diagnoses: Yes Substance Use Disorders: No Previous Attempt: No (self-harm in past) Family History of Suicide: No Previous Psychiatric Hospitalization: Yes Hopelessness: No Protective Factors Assessment Employed: No Supportive Family: Yes (but not in contact currently) Interval History Identifying Information ERICA MOORE is a 23-year-old nonbinary individual (they/them) who is currently living at [facility], has frequent emergency room visits for vario us somatic and psychiatric symptoms, a history of ASD, MDD, PTSD, borderline personality disorder, functional pain syndromes, functional blindness, IBS, abdominal migraines, sacroiliitis, joint hypermobility, and was admitted on 05/01/24 22:14 on a 201 voluntary commitment for SI with plan for seeking a lethal injection. Chief Complaint "Hurts to talk" Review of Systems Sleep Information Total Hours of Sleep: 6 Meal Information Percent Meal Consumed - Breakfast: 0 Percent Meal Consumed - Lunch: 5 Percent Meal Consumed - Dinner: 100 Subjective Subjective Patient was seen & assessed and interval progress reviewed with treatment team nursing and social work Patient reports she feels like physically dying. Says she is not able to tolerate pured foods. Says the pain immediately starts after she swallows. Says even liquids are difficult. He denies suicidal ideation. Wants to move up her GI appointment. She asked us not to call her mother. [facility]. Reports tolerating medications well. Physical Exam Mental Examination Appearance: Unkempt Eye Contact: Direct Eye Contact Motor Behavior: Unremarkable Speech: Normal Mood: Anxious Affect: Constricted Thought Process: [place] Thought Content: Intact Hallucinations: None Insight: Poor Judgement: Poor Vital Signs (Past 24 Hours) Last Vital Signs Temp 36.5 C 05/05/24 06:41 Pulse 75 05/05/24 06:41 Resp 16 05/05/24 06:41 BP 115/80 05/05/24 06:41 Pulse Ox 98 05/01/24 22:44 O2 Del Method Room Air 05/01/24 22:44 Results & Data ([facility]) Current Inpatient Medications Current Inpatient Medications: Current Inpatient Medications Acetaminophen (Acetaminophen 325 Mg Tab) 650 mg PO Q4H PRN PRN Reason: Headache or Minor Fever Stop: 05/31/24 23:06 Last Admin: 05/05/24 12:58 Dose: 650 mg Al Hydrox/Mg Hydrox/Simethicone (Aluminum/Magnesium Susp 30 Ml Udc) 30 ml PO Q4H PRN PRN Reason: GI Upset Stop: 05/31/24 23:06 Clonidine HCl (Clonidine Hcl 0.1 Mg/24 Hr Transderm Sys) 1 patch TD Q7D [facility] Stop: 06/01/24 10:59 Last Admin: 05/02/24 11:44 Dose: 1 patch Diclofenac Sodium (Diclofenac Sod 1% Gel 100 Gm Tube) 2 gm EXT BID PRN; Protocol PRN Reason: joint pain Stop: 06/01/24 10:59 Escitalopram Oxalate (Escitalopram Oxalate Oral Soln 10 Mg/10 Ml Udp) 10 mg PO QAM [facility] Stop: 06/04/24 08:59 Last Admin: 05/05/24 08:55 Dose: 10 mg Hydroxyzine HCl (Hydroxyzine Hcl 25 Mg Tab) 50 mg PO HSZ PRN PRN Reason: Insomnia Stop: 05/31/24 23:06 Hydroxyzine HCl (Hydroxyzine Hcl 25 Mg Tab) 25 mg PO Q4H PRN PRN Reason: Anxiety Stop: 05/31/24 23:06 Magnesium Hydroxide (Magnesium Hydroxide Susp 30 Ml Udc) 30 ml PO DAILY PRN PRN Reason: Constipation Stop: 05/31/24 23:06 Melatonin (Melatonin 3 Mg Tab) 3 mg PO HS PRN PRN Reason: Sleep Stop: 05/31/24 23:15 Miscellaneous (Remove Clonidine Patch) 1 each N/A CQWK [facility] Stop: 06/01/24 10:59 Last Admin: 05/02/24 11:47 Dose: Not Given Miscellaneous (Check Clonidine Patch Placement) 1 each N/A QS [facility] Stop: 06/01/24 15:59 Last Admin: 05/05/24 08:29 Dose: 1 each Ondansetron HCl (Ondansetron 4 Mg Od Tab) 4 mg PO BID PRN PRN Reason: nausea and vomiting due to migraine Stop: 06/01/24 10:43 Last Admin: 05/04/24 17:43 Dose: 4 mg Psyllium Hydrophilic Mucilloid (Psyllium Or Guar Gum Fiber 4gm Packet) 4 gm PO DAILY PRN PRN Reason: constipation, diarrhea Stop: 06/02/24 12:09 Risperidone (Risperidone Odt 0.5 Mg Soltab) 0.5 mg PO QAM [facility] Stop: 06/01/24 10:59 Last Admin: 05/05/24 08:26 Dose: 0.5 mg Risperidone (Risperidone Odt 0.5 Mg Soltab) 1 mg PO HS [facility] Stop: 06/01/24 21:59 Last Admin: 05/04/24 21:20 Dose: 1 mg Sodium Chloride (Sodium Chloride 0.65% Na Soln 45 Ml ([place])) 1 - 2 sprays NA PRN PRN PRN Reason: Nasal Dryness/Congestion Stop: 05/31/24 23:06 Mental Health & Subst Abuse Tx Therapist Name of Therapist: Carla Suarez Analyst Sales Name of Analyst Sales: Juan chavis [facility] (3) Schizoaffective disorder Schizoaffective disorder type: unspecified Qualified Code(s): F25.9 - Schizoaffective disorder, unspecified
--- NOTE | 2024-05-06 12:08 | Discharge Summary ---
Date of Service May 06, 2024 History of Present Illness Oswaldo presents with a complex mental state, expressing a desire to and to stop eating and drinking, while also discussing future educational and career aspirations. They describe wish to by suicide by getting morphine or lethal injection stating "I want to be on drugs to go to sleep and be at peace and then ". However then begins telling me about how they are moving to [place] soon to start college at [employer] noting "I'm actually leaving eventually and I'm going to [place]. 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 Pointed out this discrepancy to which they reply being fed up with chronic pain. They report chronic physical pain since age 13, including abdominal migraines (though are on a new infusion medication they report is helping a lot), irritable bowel syndrome with diarrhea, encephalitis, joint issues, and tendonitis. They deny having tried any pain medications except Tylenol and Ibupfen in the past but are very resistant to any po medications for pain (or psychiatric symptoms) nor consideration for further outpatient options such as PT or chronic pain clinic noting "I don't trust that". Pointed out this seemed like help seeking help rejecting behavior to which they reply "help rejecting, yes I do that". They report a history of autism, depression, major compulsive disorder, anxiety, and PTSD, with a strained relationship with their mother being a contributing factor to their PTSD symptoms. They endorse depressive symptoms such as suicidal ideation, poor sleep, and constant fatigue, with a history of three suicide attempts, the most recent involving self-harm with a tuna can and prior to that described as "I pick my nails because I'm doing suicide, but that's all the time for me, I'm used to it."They deny current anxiety symptoms. They exhibits periods of elevated and varying voice intonation which they attribute to their autism. They are currently prescribed prazosin for PTSD, Prozac for depression, trazodone for sleep, and Synthroid for hypothyroidism but haven't been taking these because reportedly some medications were stolen at the halfway and as they report a willingness only for "IM or IV". They do express willingness to consider liquid, dissolvable, cream and patch formulations. Additionally, the patient reports homelessness since April 21 and is currently staying at [facility] an arrangement they are satisfied with. They are involved with outpatient providers at [facility] and a therapist, but selene reyes are currently on hold due to insurance complications. However they state "it's not a problem, I'm not worried about it". They also report being on the waitlist at an [place] halfway which is being coordinated by [facility] and reports not currently speaking with their outpatient residential case manager. Difficult to fully assess psychiatric ROS-hx of schizoaffective disorder or schizophrenia per chart review but they state this diagnosis was revised at [facility]. Denies history of walter, reports poor sleep recently but with constant fatigue. 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 In short, safety was maintained and the patient was cooperative with care. Medication changes included starting Risperidone ODT 1mg HS, Escitalopram liquid formulation 10mg QD, Clonidine 0.1mg weekly patch and they tolerated this well. A safety plan was completed prior to discharge. Her diagnosis is most consistent with factitious disorder as they seem to have many dependent traits and have been observed already to seek attention of others by making sounds related to reported pain in various joints but then once engaged in discussion or getting one-on-one time immediately starts moving same body parts without any signs of distress or impairment. Patient is highly focused on validating her medical concerns and not accepting of opposing ideas. In addition, concern for autism spectrum disorder and borderline personality disorder. Does not present evidence of acute walter, major depression, or primary psychotic disorder. She would benefit from regular outpatient visits with practitioners for reassurance and engagement in intensive outpatient program or weekly counseling for DBT skills training. During her hospitalization she repeatedly denied SI, presented plans to investigate her pain sensations with intent to live, and presented a bright and affect with her peers. She was offered assistance in coordinating with her case management and family for housing, outpatient support, and financial assistance and she declined this service. Day of Discharge Assessment Today the patient voices readiness for discharge. They note improvement in mood and deny thoughts to harm self or others. Thoughts remain organized and they are improved from admission. There is no evidence of psychosis. They agree to take mediations as prescribed and keep follow-up appointments. They are stable for discharge to outpatient level of care. Transition of Care Transition Of Care Record: was reviewed with the patient Advance Directives Advance Directives Information Provided: No Advance Directives: No Mental Health Advance Directive: No Living Will: No Power of Neon Technician: No Advance Directives Reason:: Declines as Mental Health Visit. Risk Factors Assessment Male: No : Yes Do You Have Access To A Gun?: No Health Problems: Yes Mental Health Diagnoses: Yes Substance Use Disorders: No Previous Attempt: No (self-harm in past) Family History of Suicide: No Previous Psychiatric Hospitalization: Yes Hopelessness: No Protective Factors Assessment Employed: No Supportive Family: Yes (but not in contact currently) Discharge Data Lab Results 05/01/24 05/01/24 05/03/24 19:40 19:41 08:11 WBC 7.79 RBC 4.70 Hgb 13.9 Hct 42.6 MCV 90.6 MCH 29.6 MCHC 32.6 RDW Std Deviation 42.1 RDW Coeff of Julio César 12.7 Plt Count 267 MPV 10.9 Immature Gran % (Auto) 0.3 Neut % (Auto) 62.6 Lymph % (Auto) 29.0 [place] % (Auto) 7.2 Eos % (Auto) 0.6 Baso % (Auto) 0.3 Neut # (Auto) 4.88 Lymph # (Auto) 2.26 [place] # (Auto) 0.56 Eos # (Auto) 0.05 Baso # (Auto) 0.02 Immature Gran # (Auto) 0.02 Sodium 139 Potassium 3.6 Chloride 106 Carbon Dioxide 22 Anion Gap 11 BUN 10 Creatinine 0.63 Est Cr Clr Drug Dosing 182.1 eGFR 127.75 BUN/Creatinine Ratio 15.9 Glucose 89 Estimat Average Glucose 91 Hemoglobin A1c 4.8 Calcium 9.2 Total Bilirubin 0.8 AST 31 ALT 39 Alkaline Phosphatase 49 Total Protein 7.8 Albumin 4.8 Globulin 3.0 Albumin/Globulin Ratio 1.6 Triglycerides 158 H Cholesterol 172 LDL Cholesterol, Calc 95 VLDL Cholesterol, Calc 32 H HDL Cholesterol 45 Cholesterol/HDL Ratio 3.8 Vitamin B12 383 25-OH Vitamin D Total 34.0 TSH 1.179 HCG, Qual Negative Urine Color Yellow Urine Appearance Clear Urine pH 6.5 Ur Specific [place] 1.015 Urine Protein Negative Urine Glucose (UA) Negative Urine Ketones 2+ H Urine Blood Negative Urine Nitrite Negative Urine Bilirubin Negative Urine Urobilinogen Negative Ur Leukocyte Esterase Negative Salicylates < 3.0 L Urine Opiates Screen Neg Ur Methadone, Qual Neg Urine Fentanyl Screen Neg Acetaminophen < 3 L Urine Barbiturates Neg Ur Phencyclidine (PCP) Neg U Amphetamin/Meth Scrn Neg MDMA (Ecstasy) Screen Neg U Benzodiazepines Scrn Neg Ur Cocaine Metabolite Neg U Marijuana (THC) Screen Neg Ethyl Alcohol mg/dL < 10.0 SARS-CoV-2, RNA, NAAT NEGATIVE Hospital Course (1) 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 05/04/2024: Continue medications and treatment plan. 05/03/2024: Increase Lexapro to 10 mg daily. Metamucil as needed started daily. 05/02/2024: The patient was admitted to the [facility] ([facility]) on q15 min checks (behavioral with suicide precautions) for safety. The patient will participate in group, recreational, and milieu therapies and will be offered additional individual and family sessions as clinically appropriate. 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: Borderline personality disorder in adult: Autism spectrum: Abdominal migraine: Condition on Discharge: Fair Activity: Resume your previous activity Non-emergency contact: Primary Care Provider, Neurologist and Therapist Call non-emergency contact if: you have any medication questions and your symptoms worsen Follow-up/Referrals: Mahesh Sheridan MD [Primary Care Provider] - Diet: Regular Addtl Attending Provider Instructions: -Continue Risperidone 0.5mg in the morning, 1mg at bedtime -Continue Lexapro 10mg daily --- can crush into water for easier ingestion -Clonidine 0.1mg patch once weekly, next on 05/09/24 -Voltaren gel twice daily as needed for joint pain Pending Studies at Discharge: No Stand-Alone Forms: My [employer], Smoking Cessation Medications and DC Order Prescriptions: New clonidine 0.1 mg/24 hr Patch Weekly 1 patch transdermal Q7D Qty: 4 0RF escitalopram oxalate 5 mg/5 mL Solution 10 mg PO QAM Qty: 300 0RF diclofenac sodium [Voltaren Arthritis Pain] 1 % Gel 2 g EXT BID PRN (Reason: joint pain) Qty: 1 0RF risperidone 1 mg tablet,disintegrating 1 mg PO HS Qty: 30 0RF Continued Vyepti 100 mg/mL solution 100 mg IV .COMPLEX 90 Days Qty: 1 3RF Rx Instructions: FIRST DOSE 12/11/23. 100 mg IV EVERY 3 MONTHS- PREMEDICATE WITH 50MG IV DIPHENHYDRAMINE ondansetron 4 mg tablet,disintegrating 4 mg translingual BID PRN (Reason: nausea and vomiting due to migraine) Qty: 60 5RF Patient Comments: Reports stopped taking all meds one week ago, though currently still has them. omega-3 fatty acids [Super [place]-3] 1,000 mg Capsule 1,000 mg PO QAM Patient Comments: Reports stopped taking all meds one week ago, though currently still has them. cholecalciferol (vitamin D3) [D3-5000] 125 mcg (5,000 unit) capsule 5,000 unit PO QAM Patient Comments: Reports stopped taking all meds one week ago, though currently still has them. levothyroxine 25 mcg tablet 25 mcg PO DAILY Patient Comments: Reports stopped taking all meds one week ago, though currently still has them. levonorgestrel-ethinyl estrad [Sronyx] 0.1-20 mg-mcg tablet 1 tab PO QAM Patient Comments: Reports stopped taking all meds one week ago, though currently still has them. trazodone 100 mg Tablet 100 mg PO HS Discontinued prazosin 2 mg capsule 6 mg PO HS Patient Comments: Reports stopped taking all meds one week ago, though currently still has them. 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
[2024-05-06 12:30] VITALS: BP 140/88; PULSE 79
[2024-05-06] MEDS ORDERED: HYDROCORTISONE 1% CRM 30 GM TUBE EXT ONE (14:00)
== END 2024-05-06 15:00 | disposition home or self-care (01) | DRG 883 ==
LOC: ED 18:47 → 3S 22:14 → SUATTDRO 22:14 → 3S 22:26